=== PATIENT | male | born 1975 | race Hispanic/Latino ===

== ENCOUNTER 2025-11-25 14:22 | Emergency (ER) | payer SELFPAY ==
[~2025-11-25] VITALS: Ht 175.3 cm; Wt 95.3 kg
[2025-11-25 14:22] VITALS: BP 129/79; PULSE 63; RESP 16; TEMP 97.9; O2SAT 99
[2025-11-25] MEDS ORDERED: OXYMETAZOLINE NS ONE (15:04)
[2025-11-25 15:24] VITALS: BP 123/77; PULSE 60; RESP 16; O2SAT 94
== END 2025-11-25 15:24 | disposition home or self-care (01) ==
LOC: ER 14:22
DX: R04.0 Epistaxis (principal)
CPT/HCPCS: 99282